=== PATIENT | female | born 1990 | race Caucasian/White ===

== ENCOUNTER 2018-12-31 22:48 | Emergency (ER) | payer OTHER ==
[2019-01-01] MEDS: OXYMETAZOLINE 0.05% NASAL SPRAY (15 ML) NASAL (00:33)
[2019-01-01] MEDS: LORATADINE 10 MG TAB PO (00:34)
== END 2019-01-01 00:50 | disposition home or self-care (01) ==
LOC: FTE 22:48
DX: R04.0 Epistaxis (principal)
CPT/HCPCS: 30903; 99283-25